=== PATIENT | male | born 1985 | race Two or more races ===

== ENCOUNTER 2016-08-25 14:33 | Emergency (ER) | payer OTHER ==
[2016-08-25] MEDS ORDERED: ACETAMINOPHEN 500 MG TABLET ONE (14:43)
[2016-08-25] MEDS ORDERED: IBUPROFEN 600 MG TABLET ONE (14:43)
--- NOTE | 2016-08-25 15:29 | RAD ---
CHEST 2 VIEWS HISTORY: Cough x3 weeks. Frontal and lateral chest radiographs dated 08/25/2016. COMPARISON: None. FINDINGS: LUNG VOLUMES: Hyperinflation. FOCAL AIRSPACE OPACITY: No gross airspace consolidation. PLEURAL EFFUSION: None. CARDIOMEDIASTINAL SILHOUETTE: Nonenlarged. PNEUMOTHORAX: None identified. OSSEOUS STRUCTURES: No grossly destructive lesions. IMPRESSION: No gross airspace disease. Hyperinflation, which can indicate obstructive pulmonary disease versus exuberant inspiratory effort in a younger individual.
[2016-08-25] MEDS ORDERED: ACETAMINOPHEN 325 MG TABLET ONE (15:58)
== END 2016-08-25 16:06 | disposition home or self-care (01) ==
LOC: ED 14:33
DX: J06.9 Acute upper respiratory infection, unspecified (principal); R05 Cough
CPT/HCPCS: 71020; 87804; 99283 ×2; A9270 ×3